=== PATIENT | female | born 1980 | race African-American/Black ===

== ENCOUNTER 2016-09-10 05:18 | Emergency (ER) | payer OTHER ==
[2016-09-10 06:02] VITALS: BMI 27.4
--- NOTE | 2016-09-10 06:08 | PDOC ---
[id number] No Limitations - History of Present Illness Initial Comments: 09/10/16 06:17 The patient is a 36 year old female () with no significant past medical history who presents to the ED with 1 week of pelvic/abdominal pain. Patient visited her health care clinic where she follows up with her [facility] and receives her vitamins for pelvic pain and vaginal spotting. At that time, she had a ultrasound and was told that she was having a miscarriage. Patient was discharged with instructions to follow-up with [facility]. Patient visited [facility] yesterday for persistent pain, where she had a ultrasound that revealed possible retained product of conception. Patient was treated and discharge to follow-up with [facility]. Patient presents here today with pelvic/abdominal pain for persistent pain and some vaginal spotting. She also has complaints of some back pain and chills. She did not check her temp. Patient denies nausea, vomiting, or diarrhea. She denies vaginal discharge. The patient denies fever, diaphoresis, cough, SOB, chest pain, and palpitations. The patient denies dysuria, hematuria, urgency, and frequency. Allergies: NKDA Social History: No alcohol, tobacco, or drug use reported. Past Surgical History: W s/p exploratory laparotomy (2002) PCP: None reported <Radha Duncan - Last Filed: 09/10/16 06:45> <Candelario Beavers - Last Filed: 09/10/16 22:28> - General Chief Complaint: Pain Stated Complaint: ABD PAIN Past History <Radha Duncan - Last Filed: 09/10/16 06:45> - Past Medical History Other medical history: denies - Surgical History Abdominal Surgery: Yes ([facility]) - Psycho/Social/Smoking Cessation Hx Suicidal Ideation: No Smoking History: Never smoked <Candelario Beavers - Last Filed: 09/10/16 22:28> - Past Medical History Allergies/Adverse Reactions: Allergies Allergy/AdvReac Type Severity Reaction Status Date / Time No Known Allergies Allergy Verified 09/10/16 05:57 Home Medications: Ambulatory Orders Doxycycline Hyclate 100 mg PO BID #14 capsule 09/10/16 Methylergonovine Maleate [Methergine -] 0.2 mg PO QID #30 tablet 09/10/16 Review of Systems - Review of Systems Able to Perform ROS?: Yes Comments:: 09/10/16 06:17 CONSTITUTIONAL: +chills Absent: fever, diaphoresis, generalized weakness, malaise, loss of appetite HEENT: Absent: rhinorrhea, nasal congestion, throat pain, throat swelling, difficulty swallowing, mouth swelling, ear pain, eye pain, visual Changes CARDIOVASCULAR: Absent: chest pain, syncope, palpitations, irregular heart rate, lightheadedness , peripheral edema RESPIRATORY: Absent: cough, shortness of breath, dyspnea with exertion, orthopnea, wheezing, stridor, hemoptysis GASTROINTESTINAL: +pelvic/abdominal pain Absent: abdominal distension, nausea, vomiting, diarrhea , constipation, melena, hematochezia GENITOURINARY: +vaginal spotting Absent: dysuria, frequency, urgency, hesitancy, hematuria, flank pain, genital pain MUSCULOSKELETAL: +back pain Absent: arthralgia, joint swelling SKIN: Absent: rash, itching, pallor NEUROLOGIC: Absent: headache, focal weakness or paresthesias, dizziness, unsteady gait, seizure, mental status changes, bladder or bowel incontinence <Radha Duncan - Last Filed: 09/10/16 06:45> *Physical Exam - Vital Signs Last Vital Signs Temp Pulse Resp BP Pulse Ox 98.3 F 93 H 18 107/67 100 09/10/16 05:59 09/10/16 05:59 09/10/16 05:59 09/10/16 05:59 09/10/16 05:59 - Physical Exam Comments: 09/10/16 06:17 GENERAL: Well developed, well nourished. Awake and alert. No acute distress. HEENT: Normocephalic, atraumatic. PERRLA, EOMI. No conjunctival pallor. Sclera are non- icteric. Moist mucous membranes. Oropharynx is clear. NECK: Supple. Full ROM. No JVD. Carotid pulses 2+ and symmetric, without bruits. No thyromegaly. No lymphadenopathy. CARDIOVASCULAR: Regular rate and rhythm. No murmurs, rubs, or gallops. Distal pulses are 2+ and symmetric. PULMONARY: No evidence of respiratory distress. Lungs clear to auscultation bilaterally. No wheezing, rales or rhonchi. ABDOMINAL: Soft. Non-tender. Non-distended. No rebound or guarding. No organomegaly. Normoactive bowel sounds. Well-healed midline surgical scar. PELVIC: Deferred MUSCULOSKELETAL Normal range of motion at all joints. No bony deformities or tenderness. No CVA tenderness. EXTREMITIES: No cyanosis. No clubbing. No edema. No calf tenderness. SKIN: Warm and dry. Normal capillary refill. No rashes. No jaundice. NEUROLOGICAL: Alert, awake, appropriate. Cranial nerves 2-12 intact. No deficits to light touch and temperature in face, upper extremities and lower extremities. No motor deficits in the in face, upper extremities and lower extremities. Normoreflexic in the upper and lower extremities. Normal speech. PSYCHIATRIC: Cooperative. Good eye contact. Appropriate mood and affect. <Radha Duncan - Last Filed: 09/10/16 06:45> - Vital Signs Last Vital Signs Temp Pulse Resp BP Pulse Ox 98.3 F 93 H 18 107/67 100 09/10/16 05:59 09/10/16 05:59 09/10/16 05:59 09/10/16 05:59 09/10/16 05:59 - Physical Exam Female Pelvic Exam: positive: normal external exam, cervical os closed, normal adnexa, vaginal bleeding, other (scant blood). negative: CMT, discharge, lesions, Bartholin mass, adnexal tenderness <Candelario Beavers - Last Filed: 09/10/16 22:28> ED Treatment Course - LABORATORY CBC & Chemistry Diagram: 09/10/16 06:12 09/10/16 06:12 <Radha Duncan - Last Filed: 09/10/16 06:45> - LABORATORY CBC & Chemistry Diagram: 09/10/16 06:12 09/10/16 06:12 <Candelario Beavers - Last Filed: 09/10/16 22:28> Medical Decision Making - Medical Decision Making 09/10/16 06:[address] Amari Barrientos (via answering service) at 6:12 Awaiting call back 09/10/16 06:37 Second call was made to Dr. Barrientos (via answering service) at 6:37 Awaiting call back 09/10/16 06:45 Dr. Barrientos's answering service responded back at 6:[address] Barrientos does not cover [place]. Paged Dr. Childs at 6:65 (via [phone]) and patient's case was discussed. <Radha Duncan - Last Filed: 09/10/16 06:45> *DC/Admit/Observation/Transfer - Attestations Scribe Attestion: 09/10/16 06:18 Documentation prepared by Radha Duncan, acting as medical program specialist for Candelario Beavers MD, MD <Radha Duncan - Last Filed: 09/10/16 06:45> - Discharge Dispostion Admit: No <Candelario Beavers - Last Filed: 09/10/16 22:28> Diagnosis at time of Disposition: Incomplete - Discharge Dispostion Disposition: HOME Condition at time of disposition: Improved - Prescriptions Prescriptions: Doxycycline Hyclate 100 mg PO BID #14 capsule Methylergonovine Maleate [Methergine -] 0.2 mg PO QID #30 tablet - Patient Instructions Printed Discharge Instructions: DI for Miscarriage Additional Instructions: You are having a miscarriage and have retained products of conception; however, since you are not bleeding and have no abdominal pain the plan is to send to home and have you follow-up with your regular [facility] physician in 48 hours. You' re being prescribed Methergine 0.2 mg please take 1 tablet every 6 hours for the next 4 days. You are also being prescribed doxycycline 100 mg which is an antibiotic; take 1 tablet twice per day for one week. Please return to the emergency department if you have worsening of symptoms, fever, worsening abdominal pain, worsening vaginal bleeding or any other symptoms.
[2016-09-10] MEDS ORDERED: SODIUM CHLORIDE 1,000 ML IV SCH (06:15)
[2016-09-10 06:43] LABS: BASOPHIL 1.3 % (0-2.0); EOSINOPHIL 1.6 % (0-4.5); MCH 24.3 pg (25.7-33.7); MCHC 31.6 g/dl (32.0-36.0); MEAN CELL VOLUME 76.8 fl (80-96); MEAN PLT VOLUME 10.5 fl (7.5-11.1); NEUTROPHILS 63.1 % (42.8-82.8); PLATELET COUNT 216 K/MM3 (134-434); RDW 14.2 % (11.6-15.6); WHITE BLOOD COUNT 8.9 K/mm3 (4.0-10.0)
[2016-09-10 06:44] LABS: URINE APPEARANCE CLEAR; URINE BILIRUBIN NEGATIVE (NEGATIVE); URINE COLOR LTYELLOW; URINE GLUCOSE (UA) NEGATIVE (NEGATIVE); URINE KETONE NEGATIVE (NEGATIVE); URINE NITRITE NEGATIVE (NEGATIVE); URINE PROTEIN NEGATIVE (NEGATIVE); URINE UROBILINOGEN NEGATIVE E.U./dl (0.2-1.0)
[2016-09-10 06:49] LABS: URINE BLOOD 3+ (NEGATIVE); URINE LEUK ESTERASE TRACE (NEGATIVE)
[2016-09-10 06:52] LABS: URINE MUCUS RARE; URINE RBC 7 /hpf (0-3); URINE WBC 4 /hpf (3-5)
[2016-09-10 06:59] LABS: INR 1.01 (0.82-1.09); PROTHROMBIN TIME (PATIENT) 11.1 SEC (9.98-11.88)
[2016-09-10 07:01] LABS: ACTIVATED PTT 32.2 SECONDS (26.9-34.4)
[2016-09-10 07:13] LABS: ALBUMIN 3.8 g/dl (3.4-5.0); ANION GAP 5 (8-16); BILIRUBIN,TOTAL 0.7 mg/dL (0.2-1.0); CALCIUM 8.6 mg/dL (8.5-10.1); CO2 29 mmol/L (21-32); CREATININE 0.8 mg/dL (0.55-1.02); GLUCOSE,RANDOM 80 mg/dL (74-106); SGPT/ALT 20 U/L (12-78); TOT PROT 7.8 g/dl (6.4-8.2)
[2016-09-10 07:16] LABS: ALK PHOS 60 U/L (45-117)
[2016-09-10 07:23] LABS: SGOT/AST 21 U/L (15-37)
--- NOTE | 2016-09-10 07:38 | PN ---
Progress Note (short form) - Note Progress Note: Called from RACHEL at 6:45am to discuss 36 s/p miscarriage who presents with vaginal spotting, was seen at [facility] ER yesterday where an ultrasound was performed showing 1cm for retained products of conception. Beta Hcg noted to be 303. Per Dr Beavers, this was a first trimester SAB. She currently has no heavy vaginal bleeding, vital signs are stable, Hct 38.6, afebrile. On pelvic exam by ER physician, os is closed and scant blood in the vagina. Patient may be given the option of expectant management vs 800mcg cytotec buccal x once to allow for passing of products and contractility of uterus. If no bleeding after 12 hours may repeat. Also recommended giving pain medication for cramping. Prior to leaving the ER, f/u blood type, if Rh neg she will need rhogram. Patient may follow up at [address] [place] [address] ([facility]) in 2 days for follow up and repeat ultrasound to ensure no additional products of conception.
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
--- NOTE | 2016-09-10 13:24 | PDOC ---
*Physical Exam - Vital Signs Last Vital Signs Temp Pulse Resp BP Pulse Ox 99.1 F 70 16 91/58 97 09/10/16 09:00 09/10/16 09:00 09/10/16 09:00 09/10/16 09:00 09/10/16 09:00 ED Treatment Course - LABORATORY CBC & Chemistry Diagram: 09/10/16 06:12 09/10/16 06:12 - ADDITIONAL ORDERS Additional order review: Laboratory Results 09/10/16 09/10/16 09/10/16 06:12 06:12 06:12 INR PTT (Actin FS) Sodium 139 Potassium 4.2 Chloride 105 Carbon Dioxide 29 Anion Gap 5 L BUN 9 Creatinine 0.8 Creat Clearance w eGFR > 60 Random Glucose 80 Calcium 8.6 Total Bilirubin 0.7 AST 21 ALT 20 Alkaline Phosphatase 60 Total Protein 7.8 Albumin 3.8 Beta HCG, Quant 303.5 Urine Color Ltyellow Urine Appearance Clear Urine pH 6.0 Ur Specific [place] 1.017 Urine Protein Negative Urine Glucose (UA) Negative Urine Ketones Negative Urine Blood 3+ H Urine Nitrite Negative Urine Bilirubin Negative Urine Urobilinogen Negative Ur Leukocyte Esterase Trace H Urine RBC 7 Urine WBC 4 Ur Epithelial Cells Rare Urine Mucus Rare Blood Type B POSITIVE Antibody Screen Negative 09/10/16 06:12 INR 1.01 PTT (Actin FS) 32.2 Sodium Potassium Chloride Carbon Dioxide Anion Gap BUN Creatinine Creat Clearance w eGFR Random Glucose Calcium Total Bilirubin AST ALT Alkaline Phosphatase Total Protein Albumin Beta HCG, Quant Urine Color Urine Appearance Urine pH Ur Specific [place] Urine Protein Urine Glucose (UA) Urine Ketones Urine Blood Urine Nitrite Urine Bilirubin Urine Urobilinogen Ur Leukocyte Esterase Urine RBC Urine WBC Ur Epithelial Cells Urine Mucus Blood Type Antibody Screen 09/10/16 06:12 RBC 5.03 MCV 76.8 L MCHC 31.6 L RDW 14.2 MPV 10.5 Neutrophils % 63.1 Lymphocytes % 28.4 Monocytes % 5.6 Eosinophils % 1.6 Basophils % 1.3 - RADIOLOGY Radiology Studies Ordered: Category Date Time Status TRANSVAGINAL US PREG [US] Stat Ultrasound 09/10/16 11:03 Completed Progress Note - Progress Note Progress Note: This patient was endorsed to me at 7 AM by pending evaluation by OB/ COURT [facility]AIL[facility]. The CLINICAL TRIALS NURSE consult and requested that the patient had a pelvic ultrasound to assess for retained products of conception. The ultrasound indeed shows retained products of conception; however the patient is not bleeding and hospice is closed and she has a nontender abdomen. I've discussed the case with the CLINICAL TRIALS NURSE practice consultant and the recommendation is for the patient to follow-up in 2 days for a repeat beta hCG, discharged on Methergine 0.2 mg every 6 hours for 4 days and doxycycline 100 mg twice a day. I have discussed this with the patient and she understands that she needs to follow-up in 2 days with her OB/ COURT [facility]AILIFF physicianshe has told me that she can call and make an appointment. I have also advised the patient to return to the emergency department if she has worsening of symptoms, fever, bleeding, abdominal pain or any other symptoms. *DC/Admit/Observation/Transfer Diagnosis at time of Disposition: Incomplete - Discharge Dispostion Disposition: HOME Condition at time of disposition: Stable Admit: No - Prescriptions Prescriptions: Misoprostol [Cytotec] 800 mcg NR ONCE #1 tablet - Patient Instructions Printed Discharge Instructions: DI for Miscarriage Additional Instructions: You are having a miscarriage and have retained products of conception; however, since you are not bleeding and have no abdominal pain the plan is to send to home and have you follow-up with your regular [facility] physician in 48 hours. You' re being prescribed Methergine 0.2 mg please take 1 tablet every 6 hours for the next 4 days. You are also being prescribed doxycycline 100 mg which is an antibiotic; take 1 tablet twice per day for one week. Please return to the emergency department if you have worsening of symptoms, fever, worsening abdominal pain, worsening vaginal bleeding or any other symptoms.
[2016-09-10 18:35] VITALS: BP 95/60; PULSE 76; TEMP 98.5
== END 2016-09-10 14:12 | disposition home or self-care (01) ==
LOC: JER 05:18
PROC: 3E0337Z Introduction of Electrolytic and Water Balance Substance into Peripheral Vein, Percutaneous Approach (ICD-10-PCS; principal; 2016-09-10)
DX: O03.4 Incomplete spontaneous abortion without complication (principal); Z3A.01 Less than 8 weeks gestation of pregnancy
CPT/HCPCS: 36415; 76817-TC; 80053; 81003; 81015; 84702; 85025; 85610; 85730; 86850; 86900; 86901; 87086; 96360; 96361; 99283-25